=== PATIENT | female | born 1980 | race Caucasian/White ===

== ENCOUNTER 2016-05-03 06:54 | Day surgery (SDC) | payer MEDICAID ==
[~2016-05-03] VITALS: Ht 160 cm; Wt 143.7 kg
[~2016-05-03 06:54] MED LIST: AMITRIPTYLINE H10 M1 PO; BENADRYL25 M2 PO; CELEXA 20MG20 MG/TAB PO; CEPHALEXIN500 M1 PO; CHERATUSSIN AC120 ML PO; CIPRO 500MG TA500 MG PO; DESYREL 100MG100 MG PO; DESYREL 50MG50 MG PO; DOXYCYCLINE 10100 MG PO; FLAGYL500 MG PO; FLEXERIL 1010 MG/TAB PO; GLUCOPHAGE500 MG/TAB PO; HYDROCODONE/APAP; INDERAL 10MG10 MG PO; LORTAB 5/500 501 TAB PO; LORTAB 7.5/5001 TAB PO; MEDROL 4MG DOSPA4 MG PO; NO HOME MEDICATIONS; NORCO 325 MG-51 TAB PO; PERCOCET 325 MG1 TA2 PO; PERCOCET 5/321 UDTAB PO; PHENERGAN 25 TA25 MG PO; PHENTERMINE15 MG PO; PREDNISONE20 M1 PO; PREDNISONE20 MG PO; PROMETHAZINE12.5 M5 PO; PROZAC 20MG20 MG PO; ULTRAM 50MG TAB50 MG PO; VERAPAMIL 440 MG/TAB PO; XYAL5 MG; ZANTAC 150150 MG PO; ZANTAC 150MG T150 MG; ZOFRAN 4MG T4 MG/TAB PO; [UNRECOGNIZED DRUG - OTHER]; [UNRECOGNIZED DRUG - OTHER] PO; migraine med
[2016-05-03 07:56] VITALS: BP 127/83; PULSE 72; TEMP 98.2
[2016-05-03 08:30] VITALS: BP 131/78; PULSE 84; TEMP 98.7
[2016-05-03 08:45] VITALS: BP 120/78; PULSE 80
[2016-05-03] MEDS ORDERED: PRILOSEC 20MG20 MG PO (08:56)
[2016-05-03 09:00] VITALS: BP 112/63; PULSE 75
[2016-05-03 09:15] VITALS: BP 120/69; PULSE 73
[2016-05-03 11:12] VITALS: BP 120/68; PULSE 86
[2016-06-16] VITALS (257 sets, daily range): O2SAT 88–95
[2016-06-17] VITALS (652 sets, daily range): O2SAT 78–99
[2016-06-28] MEDS ORDERED: HAIRSKINNAILS PO (14:54)
[2016-06-28] MEDS ORDERED: MULTIPLE VITAMI1 CAP PO (14:54)
[2016-07-26] MEDS ORDERED: B-121000 MCG SL (13:21)
[2016-09-20] MEDS ORDERED: MULTIPLE VITAMINS PO (15:06)
[2016-09-20] MEDS ORDERED: DESYREL 50MG50 MG PO (15:18)
== END 2016-05-03 09:30 | disposition home or self-care (01) ==
LOC: SDCO 06:54
DX: K29.30 Chronic superficial gastritis without bleeding (principal); B96.81 Helicobacter pylori [H. pylori] as the cause of diseases classified elsewhere; E66.01 Morbid (severe) obesity due to excess calories; R73.01 Impaired fasting glucose; M06.9 Rheumatoid arthritis, unspecified; E16.1 Other hypoglycemia; Z79.84 Long term (current) use of oral hypoglycemic drugs; Z68.43 Body mass index [BMI] 50.0-59.9, adult; Z83.3 Family history of diabetes mellitus
CPT/HCPCS: OP; J2250; J3010; J7030

== ENCOUNTER 2016-05-19 08:17 | Inpatient (IN) | payer MEDICAID ==
[~2016-05-19] VITALS: Ht 157.5 cm; Wt 146.2 kg
[~2016-05-19 08:17] MED LIST changes: +PRILOSEC 20MG20 MG PO
[2016-06-07] MEDS ORDERED: NAPROSYN 2250 MG/TAB PO (16:11)
[2016-06-16] VITALS (9 sets, daily range): BP systolic 117–135; BP diastolic 68–90; PULSE 73–115; TEMP 97.6–98.3
[2016-06-17] VITALS: BP 128/95; PULSE 83; TEMP 97
[2016-06-17 03:54] VITALS: BP 135/88; PULSE 74; PULSE 77; TEMP 98
[2016-06-17 06:39] LABS: ADJUSTED CALCIUM 8.5 mg/dL (8.4-10.2); ALBUMIN 3.5 gm/dL (3.5-5.0); BILIRUBIN,TOTAL 0.7 mg/dL (0.0-1.0); CALCIUM 8.1 mg/dL (8.4-10.2); CREATININE, serum 0.54 mg/dL (0.52-1.25); POTASSIUM 4.8 mmol/L (3.4-5.0); TOTAL PROTEIN 6.4 gm/dL (6.4-8.2)
[2016-06-17 06:46] LABS: BASO % 0.1 % (0.0-2.0); GRAN # 10.9 (1.4-6.5); GRAN % 89.6 % (42.2-75.2); HEMATOCRIT 39.1 % (37.0-47.0); HEMOGLOBIN 12.3 g/dl (12.5-16.0); LYMPH # 0.7 (1.2-3.4); LYMPH % 5.6 % (20.0-51.0); MEAN CELL VOLUME 85 fl (80.0-100.0); MEAN CORPUSCULAR HEMOGLOBIN 27 pg (27.0-31.0); MEAN CORPUSCULAR HGB CONC 32 g/dl (33.0-37.0); MEAN PLATELET VOLUME 10.7 fl (7.4-10.4); MONO # 0.5 (0.1-0.6); MONO % 4.3 % (1.7-9.3); PLATELET COUNT 174 K/mm3 (130-400); RED BLOOD COUNT 4.61 M/mm3 (4.10-5.30); REDCELL DISTRIBUTION WIDTH-CV 14.3 % (11.5-14.5); WHITE BLOOD COUNT 12.2 K/mm3 (4.8-10.8)
[2016-06-17 08:00] VITALS: BP 125/99; PULSE 78; TEMP 97.6
[2016-06-17 18:42] VITALS: BP 134/50; PULSE 95; TEMP 97.7
[2016-06-17 21:55] VITALS: BP 110/59; PULSE 83; TEMP 98
[2016-06-18] VITALS (7 sets, daily range): BP systolic 105–124; BP diastolic 34–55; PULSE 68–100; TEMP 98.1–99
[2016-06-18 07:23] LABS: BASO % 0.2 % (0.0-2.0); EOS # 0.2 (0.0-0.7); EOS % 2.3 % (0-4.0); GRAN % 75.7 % (42.2-75.2); LYMPH # 1.4 (1.2-3.4); LYMPH % 14.8 % (20.0-51.0); MEAN CELL VOLUME 87 fl (80.0-100.0); MEAN CORPUSCULAR HGB CONC 31 g/dl (33.0-37.0); MEAN PLATELET VOLUME 11.2 fl (7.4-10.4); MONO # 0.6 (0.1-0.6); MONO % 6.7 % (1.7-9.3); PLATELET COUNT 167 K/mm3 (130-400); REDCELL DISTRIBUTION WIDTH-CV 14.7 % (11.5-14.5); WHITE BLOOD COUNT 9.2 K/mm3 (4.8-10.8)
[2016-06-18 07:24] LABS: CALCIUM 8.1 mg/dL (8.4-10.2); CREATININE, serum 0.54 mg/dL (0.52-1.25); POTASSIUM 3.4 mmol/L (3.4-5.0)
[2016-06-18 07:43] LABS: HEMATOCRIT 34.7 % (37.0-47.0); HEMOGLOBIN 10.6 g/dl (12.5-16.0); MEAN CORPUSCULAR HEMOGLOBIN 27 pg (27.0-31.0)
[2016-06-19 01:50] VITALS: BP 109/49; PULSE 62; TEMP 97
[2016-06-19 05:22] VITALS: BP 129/71; PULSE 93; TEMP 98.2
[2016-06-19 07:08] LABS: MEAN CELL VOLUME 86 fl (80.0-100.0); MEAN CORPUSCULAR HGB CONC 31 g/dl (33.0-37.0); MEAN PLATELET VOLUME 11.3 fl (7.4-10.4); PLATELET COUNT 156 K/mm3 (130-400); RED BLOOD COUNT 3.61 M/mm3 (4.10-5.30); REDCELL DISTRIBUTION WIDTH-CV 14.7 % (11.5-14.5); WHITE BLOOD COUNT 6.3 K/mm3 (4.8-10.8)
[2016-06-19 07:11] LABS: HEMATOCRIT 31.1 % (37.0-47.0); HEMOGLOBIN 9.6 g/dl (12.5-16.0); MEAN CORPUSCULAR HEMOGLOBIN 27 pg (27.0-31.0)
[2016-06-19 07:19] LABS: CALCIUM 7.9 mg/dL (8.4-10.2); CREATININE, serum 0.51 mg/dL (0.52-1.25); POTASSIUM 3.1 mmol/L (3.4-5.0)
[2016-06-19 09:18] VITALS: BP 119/61; PULSE 88; TEMP 97.6
[2016-06-19 14:11] VITALS: BP 121/60; PULSE 75; TEMP 97.1
[2016-06-19 17:33] VITALS: BP 133/70; PULSE 87; TEMP 98.5
[2016-06-19 21:16] VITALS: BP 116/59; PULSE 83; TEMP 97.7
[2016-06-20 06:06] VITALS: BP 113/61; PULSE 71; TEMP 97.2
[2016-06-20 08:27] LABS: BASO % 0.4 % (0.0-2.0); EOS # 0.4 (0.0-0.7); EOS % 6.5 % (0-4.0); GRAN # 3.4 (1.4-6.5); GRAN % 62.6 % (42.2-75.2); LYMPH # 1.3 (1.2-3.4); LYMPH % 23.9 % (20.0-51.0); MEAN CELL VOLUME 86 fl (80.0-100.0); MEAN CORPUSCULAR HGB CONC 32 g/dl (33.0-37.0); MEAN PLATELET VOLUME 11.1 fl (7.4-10.4); MONO # 0.3 (0.1-0.6); MONO % 6.2 % (1.7-9.3); PLATELET COUNT 169 K/mm3 (130-400); RED BLOOD COUNT 3.32 M/mm3 (4.10-5.30); REDCELL DISTRIBUTION WIDTH-CV 14.5 % (11.5-14.5); WHITE BLOOD COUNT 5.4 K/mm3 (4.8-10.8)
[2016-06-20 08:32] LABS: HEMATOCRIT 28.6 % (37.0-47.0); MEAN CORPUSCULAR HEMOGLOBIN 27 pg (27.0-31.0)
[2016-06-20 08:47] LABS: CALCIUM 7.3 mg/dL (8.4-10.2); CREATININE, serum 0.43 mg/dL (0.52-1.25)
[2016-06-20 08:54] LABS: POTASSIUM 2.8 mmol/L (3.4-5.0)
[2016-06-20 09:14] VITALS: BP 129/74; PULSE 84; TEMP 97.2
[2016-06-20 13:55] VITALS: BP 137/62; PULSE 88; TEMP 97.6
[2016-06-20 17:30] VITALS: BP 130/68; PULSE 71; TEMP 96.7
[2016-06-20 22:00] VITALS: BP 116/62; PULSE 83; TEMP 98.3
[2016-06-21 06:39] VITALS: BP 129/64; PULSE 75; TEMP 98.2
[2016-06-21 07:48] LABS: BASO % 0.2 % (0.0-2.0); EOS # 0.4 (0.0-0.7); GRAN # 3.8 (1.4-6.5); GRAN % 63.7 % (42.2-75.2); LYMPH # 1.3 (1.2-3.4); LYMPH % 21.6 % (20.0-51.0); MEAN CELL VOLUME 84 fl (80.0-100.0); MEAN CORPUSCULAR HGB CONC 31 g/dl (33.0-37.0); MONO # 0.4 (0.1-0.6); PLATELET COUNT 206 K/mm3 (130-400); REDCELL DISTRIBUTION WIDTH-CV 14.2 % (11.5-14.5)
[2016-06-21 07:56] LABS: CALCIUM 8.4 mg/dL (8.4-10.2); CREATININE, serum 0.48 mg/dL (0.52-1.25); POTASSIUM 3.6 mmol/L (3.4-5.0)
[2016-06-21 08:03] LABS: HEMATOCRIT 31.2 % (37.0-47.0); HEMOGLOBIN 9.8 g/dl (12.5-16.0); MEAN CORPUSCULAR HEMOGLOBIN 26 pg (27.0-31.0)
[2016-06-28] MEDS ORDERED: MULTIPLE VITAMI1 CAP PO (14:54)
[2016-06-28] MEDS ORDERED: HAIRSKINNAILS PO (14:54)
[2016-07-26] MEDS ORDERED: B-121000 MCG SL (13:21)
[2016-09-20] MEDS ORDERED: MULTIPLE VITAMINS PO (15:06)
[2016-09-20] MEDS ORDERED: DESYREL 50MG50 MG PO (15:18)
== END 2016-06-21 12:55 | disposition home or self-care (01) | DRG 621 ==
LOC: INPTSU 06-16 07:36 → SURG 06-16 09:30 → ICU 06-16 18:37 → SURG 06-17 12:34
PROVIDERS: Surgery
PROC: 0WJP4ZZ Inspection of Gastrointestinal Tract, Percutaneous Endoscopic Approach (ICD-10-PCS; 2016-06-16)
PROC: 0D160ZA Bypass Stomach to Jejunum, Open Approach (ICD-10-PCS; principal; 2016-06-16 10:30)
DX: E66.01 Morbid (severe) obesity due to excess calories (principal); Z68.43 Body mass index [BMI] 50.0-59.9, adult; M06.9 Rheumatoid arthritis, unspecified; E16.1 Other hypoglycemia; R06.89 Other abnormalities of breathing; R09.02 Hypoxemia; E87.6 Hypokalemia
CPT/HCPCS: A4315; C1751; C9113; J0330; J1170; J1644; J1650; J1885; J1956; J2550; J2704; J3010; J3480; J7030; J7120

== ENCOUNTER → 2016-06-07 | Outpatient (CLI) | payer MEDICAID ==
[~2016-06-07] VITALS: Ht 160 cm; Wt 143.1 kg
[~2016-06-07] MED LIST changes: +B-121000 MCG SL; +BACTRIM DS 8001 TAB PO; +DUO-KAPS1 CAP PO; +HAIRSKINNAILS PO; +MULTIPLE VITAMI1 CAP PO; +MULTIPLE VITAMINS PO; +NAPROSYN 2250 MG/TAB PO; +ZOFRAN ODT4 MG PO
== END ==
LOC: LIGHT 11:07
DX: Z01.818 Encounter for other preprocedural examination (principal)

== ENCOUNTER → 2016-06-28 | Outpatient (CLI) | payer MEDICAID ==
[~2016-06-28] VITALS: Ht 157.5 cm; Wt 134.0 kg
[2016-06-28 14:55] VITALS: BP 132/67; PULSE 110
== END ==
LOC: LIGHT 14:33
DX: Z48.815 Encounter for surgical aftercare following surgery on the digestive system (principal)

== ENCOUNTER → 2016-07-26 | Outpatient (CLI) | payer MEDICAID ==
[~2016-07-26] VITALS: Ht 157.5 cm; Wt 128.4 kg
[2016-07-26 13:22] VITALS: BP 110/70; PULSE 86
== END ==
LOC: LIGHT 13:20
DX: Z02.89 Encounter for other administrative examinations (principal)

== ENCOUNTER 2016-08-06 14:30 | Observation (INO) | payer MEDICAID ==
[~2016-08-06] VITALS: Ht 157.5 cm; Wt 127.0 kg
[~2016-08-06 14:30] MED LIST changes: -BACTRIM DS 8001 TAB PO; -DUO-KAPS1 CAP PO; -MULTIPLE VITAMINS PO; -ZOFRAN ODT4 MG PO
[2016-08-06 15:44] LABS: BASO % 0.5 % (0.0-2.0); EOS # 0.2 (0.0-0.7); EOS % 1.8 % (0-4.0); GRAN # 5.1 (1.4-6.5); GRAN % 60.4 % (42.2-75.2); HEMATOCRIT 45.9 % (37.0-47.0); HEMOGLOBIN 14.5 g/dl (12.5-16.0); LYMPH # 2.7 (1.2-3.4); LYMPH % 31.4 % (20.0-51.0); MEAN CELL VOLUME 82 fl (80.0-100.0); MEAN CORPUSCULAR HEMOGLOBIN 26 pg (27.0-31.0); MEAN CORPUSCULAR HGB CONC 32 g/dl (33.0-37.0); MEAN PLATELET VOLUME 11.9 fl (7.4-10.4); MONO # 0.5 (0.1-0.6); MONO % 5.7 % (1.7-9.3); PLATELET COUNT 281 K/mm3 (130-400); REDCELL DISTRIBUTION WIDTH-CV 13.8 % (11.5-14.5); WHITE BLOOD COUNT 8.5 K/mm3 (4.8-10.8)
[2016-08-06 15:55] LABS: ADJUSTED CALCIUM 8.9 mg/dL (8.4-10.2); ALBUMIN 4.7 gm/dL (3.5-5.0); CALCIUM 9.5 mg/dL (8.4-10.2); CREATININE, serum 0.57 mg/dL (0.52-1.25); POTASSIUM 3.5 mmol/L (3.4-5.0); TOTAL PROTEIN 8.1 gm/dL (6.4-8.2)
[2016-08-06 17:19] LABS: PH 6 (5-8); URINE APPEARANCE Clear; URINE BACTERIA Rare /hpf; URINE BILIRUBIN Negative (NEGATIVE); URINE BLOOD Negative (NEGATIVE); URINE COLOR Yellow; URINE GLUCOSE Negative (NEGATIVE); URINE KETONE 2+ (NEGATIVE); URINE UROBILINOGEN Negative (NEGATIVE)
[2016-08-06 19:30] VITALS: BP 105/63; PULSE 56; TEMP 97.8
[2016-08-07] VITALS (10 sets, daily range): BP systolic 102–120; BP diastolic 56–86; PULSE 55–69; TEMP 97.6–98.4
[2016-08-08 06:03] VITALS: BP 119/78; PULSE 60; TEMP 98
[2016-08-08 09:53] VITALS: BP 116/72; PULSE 54; TEMP 97.9
[2016-08-08 13:34] VITALS: BP 115/66; PULSE 56; TEMP 98.2
[2016-08-08 17:41] VITALS: BP 116/73; PULSE 61; TEMP 98.4
[2016-08-08 21:45] VITALS: BP 130/62; PULSE 65; TEMP 98
[2016-08-09 06:01] VITALS: BP 99/47; PULSE 56; TEMP 97.6
[2016-08-09 09:07] LABS: ADD PATHOLOGY DIFF REVIEW NO
[2016-08-09 09:15] LABS: HEMATOCRIT 40.7 % (37.0-47.0); HEMOGLOBIN 12.8 g/dl (12.5-16.0); MEAN CELL VOLUME 82 fl (80.0-100.0); MEAN CORPUSCULAR HEMOGLOBIN 26 pg (27.0-31.0); MEAN CORPUSCULAR HGB CONC 31 g/dl (33.0-37.0); PLATELET COUNT 224 K/mm3 (130-400); RED BLOOD COUNT 4.96 M/mm3 (4.10-5.30); REDCELL DISTRIBUTION WIDTH-CV 14.3 % (11.5-14.5); WHITE BLOOD COUNT 4.6 K/mm3 (4.8-10.8)
[2016-08-09 09:25] LABS: ADJUSTED CALCIUM 9.2 mg/dL (8.4-10.2); ALANINE AMINOTRANSFERASE 357 U/L (9-52); ALBUMIN 3.8 gm/dL (3.5-5.0); ALKALINE PHOSPHATASE 118 U/L (50-136); ANION GAP 14 mmol/L (7-16); CARBON DIOXIDE 23 mmol/L (22-30); CHLORIDE 101 mmol/L (98-107); CREATININE, serum 0.52 mg/dL (0.52-1.25); GLUCOSE 94 mg/dL (74-106); LIPASE 218 U/L (23-300); POTASSIUM 3.2 mmol/L (3.4-5.0); SODIUM 138 mmol/L (137-145); TOTAL PROTEIN 6.8 gm/dL (6.4-8.2)
[2016-08-09 09:30] VITALS: BP 109/66; PULSE 65; TEMP 98
[2016-08-09 09:31] LABS: BLOOD UREA NITROGEN < 2 mg/dL (7-17)
[2016-08-09 10:07] LABS: BAND 8 % (0-10); EOSINOPHIL 7 % (0-4); NEUTROPHILS 55 % (42.0-75.2); TOTAL CELLS COUNTED 100
[2016-08-09 10:13] LABS: PLATELET ESTIMATE NORMAL (NORMAL)
[2016-09-20] MEDS ORDERED: MULTIPLE VITAMINS PO (15:06)
[2016-09-20] MEDS ORDERED: DESYREL 50MG50 MG PO (15:18)
== END 2016-08-09 15:00 | disposition home or self-care (01) ==
LOC: COL.ER 14:30 → SURG 18:00
PROVIDERS: Emergency Medicine; Surgery
DX: K29.70 Gastritis, unspecified, without bleeding (principal); K25.9 Gastric ulcer, unspecified as acute or chronic, without hemorrhage or perforation; K91.850 Pouchitis; K76.0 Fatty (change of) liver, not elsewhere classified; R16.1 Splenomegaly, not elsewhere classified; M06.9 Rheumatoid arthritis, unspecified; F32.9 Major depressive disorder, single episode, unspecified; G47.33 Obstructive sleep apnea (adult) (pediatric); E66.01 Morbid (severe) obesity due to excess calories; Z90.49 Acquired absence of other specified parts of digestive tract; Z90.710 Acquired absence of both cervix and uterus; Z98.84 Bariatric surgery status; Z98.51 Tubal ligation status
CPT/HCPCS: C9113; G0378; J1170; J2550; J2704; J2765; J3010; J7030; Q9967

== ENCOUNTER → 2016-09-20 | Outpatient (CLI) | payer MEDICAID ==
[~2016-09-20] VITALS: Ht 157.5 cm; Wt 117.0 kg
[~2016-09-20] MED LIST changes: +BACTRIM DS 8001 TAB PO; +DUO-KAPS1 CAP PO; +MULTIPLE VITAMINS PO; +ZOFRAN ODT4 MG PO
[2016-09-20 15:06] VITALS: BP 102/55; PULSE 58
== END ==
LOC: LIGHT 08:47
DX: R73.01 Impaired fasting glucose (principal); E16.1 Other hypoglycemia; Z68.42 Body mass index [BMI] 45.0-49.9, adult; Z71.3 Dietary counseling and surveillance

== ENCOUNTER 2016-10-09 08:43 | Emergency (ER) | payer MEDICAID ==
[~2016-10-09] VITALS: Ht 157.5 cm; Wt 114.5 kg
[~2016-10-09 08:43] MED LIST changes: -BACTRIM DS 8001 TAB PO; -DUO-KAPS1 CAP PO; -ZOFRAN ODT4 MG PO
[2016-10-09 08:47] VITALS: TEMP 97.9
[2016-10-09 09:45] LABS: BASO % 0.8 % (0.0-2.0); EOS # 0.1 (0.0-0.7); EOS % 3.6 % (0-4.0); GRAN # 1.9 (1.4-6.5); GRAN % 47.7 % (42.2-75.2); HEMATOCRIT 39.9 % (37.0-47.0); HEMOGLOBIN 12.7 g/dl (12.5-16.0); LYMPH # 1.6 (1.2-3.4); LYMPH % 39.7 % (20.0-51.0); MEAN CELL VOLUME 81 fl (80.0-100.0); MEAN CORPUSCULAR HEMOGLOBIN 26 pg (27.0-31.0); MEAN CORPUSCULAR HGB CONC 32 g/dl (33.0-37.0); MONO # 0.3 (0.1-0.6); MONO % 8.2 % (1.7-9.3); PLATELET COUNT 165 K/mm3 (130-400); RED BLOOD COUNT 4.91 M/mm3 (4.10-5.30); REDCELL DISTRIBUTION WIDTH-CV 15.9 % (11.5-14.5); WHITE BLOOD COUNT 3.9 K/mm3 (4.8-10.8)
[2016-10-09] MEDS ORDERED: DUO-KAPS1 CAP PO (09:50)
[2016-10-09 09:53] LABS: PH 5 (5-8); URINE APPEARANCE Cloudy; URINE BACTERIA None Seen /hpf; URINE BILIRUBIN Negative (NEGATIVE); URINE BLOOD 3+ (NEGATIVE); URINE COLOR Yellow; URINE GLUCOSE Negative (NEGATIVE); URINE KETONE 2+ (NEGATIVE); URINE RBC >50 /hpf
[2016-10-09 09:55] LABS: ADJUSTED CALCIUM 9.1 mg/dL (8.4-10.2); ALBUMIN 4.1 gm/dL (3.5-5.0); BILIRUBIN,TOTAL 1.1 mg/dL (0.0-1.0); CALCIUM 9.2 mg/dL (8.4-10.2); CREATININE, serum 0.6 mg/dL (0.52-1.25); POTASSIUM 3.2 mmol/L (3.4-5.0)
[2016-10-09] MEDS ORDERED: BACTRIM DS 8001 TAB PO (10:59)
[2016-10-09] MEDS ORDERED: NORCO 325 MG-51 TAB PO (10:59)
[2016-10-09] MEDS ORDERED: ZOFRAN ODT4 MG PO (10:59)
[2016-10-09 11:49] VITALS: BP 108/57; PULSE 60
== END 2016-10-09 11:51 | disposition home or self-care (01) ==
LOC: COL.ER 08:43
PROVIDERS: Physician Assistant
DX: N39.0 Urinary tract infection, site not specified (principal); R31.9 Hematuria, unspecified; Z90.710 Acquired absence of both cervix and uterus; Z90.49 Acquired absence of other specified parts of digestive tract; Z98.84 Bariatric surgery status; Z87.442 Personal history of urinary calculi
CPT/HCPCS: J1170; J1885; J2550; J7030

== ENCOUNTER 2016-10-21 17:18 | Observation (INO) | payer MEDICAID ==
[~2016-10-21] VITALS: Ht 157.5 cm; Wt 112.8 kg
[~2016-10-21 17:18] MED LIST changes: +BACTRIM DS 8001 TAB PO; +DUO-KAPS1 CAP PO; +ZOFRAN ODT4 MG PO
[2016-10-21 18:30] LABS: BASO % 0.4 % (0.0-2.0); EOS # 0.1 (0.0-0.7); GRAN # 3.6 (1.4-6.5); HEMATOCRIT 44.5 % (37.0-47.0); HEMOGLOBIN 14.1 g/dl (12.5-16.0); LYMPH # 1.5 (1.2-3.4); LYMPH % 26.5 % (20.0-51.0); MEAN CELL VOLUME 81 fl (80.0-100.0); MEAN CORPUSCULAR HEMOGLOBIN 26 pg (27.0-31.0); MEAN CORPUSCULAR HGB CONC 32 g/dl (33.0-37.0); MEAN PLATELET VOLUME 11.5 fl (7.4-10.4); MONO # 0.4 (0.1-0.6); MONO % 6.9 % (1.7-9.3); PLATELET COUNT 207 K/mm3 (130-400); RED BLOOD COUNT 5.47 M/mm3 (4.10-5.30); REDCELL DISTRIBUTION WIDTH-CV 15.6 % (11.5-14.5); WHITE BLOOD COUNT 5.5 K/mm3 (4.8-10.8)
[2016-10-21 18:43] LABS: ADJUSTED CALCIUM 9.4 mg/dL (8.4-10.2); ALBUMIN 4.5 gm/dL (3.5-5.0); BILIRUBIN,TOTAL 1.1 mg/dL (0.0-1.0); C-REACTIVE PROTEIN 1.4 mg/dL (0.0-0.9); CALCIUM 9.8 mg/dL (8.4-10.2); CREATININE, serum 0.81 mg/dL (0.52-1.25); POTASSIUM 3.7 mmol/L (3.4-5.0); TOTAL PROTEIN 7.9 gm/dL (6.4-8.2)
[2016-10-21 18:47] LABS: PH 6 (5-8); URINE APPEARANCE Hazy; URINE BACTERIA Rare /hpf; URINE BILIRUBIN Negative (NEGATIVE); URINE BLOOD 1+ (NEGATIVE); URINE COLOR Yellow; URINE GLUCOSE Negative (NEGATIVE); URINE KETONE 2+ (NEGATIVE)
[2016-10-21] MEDS ORDERED: FLEXERIL 1010 MG/TAB PO (19:15)
[2016-10-21 22:15] VITALS: BP 121/63; PULSE 70; TEMP 98.3
[2016-10-22] VITALS (14 sets, daily range): BP systolic 104–139; BP diastolic 57–85; PULSE 56–97; TEMP 97.6–98.2
[2016-10-23 02:33] VITALS: BP 101/54; PULSE 71; TEMP 97.9
[2016-10-23 06:24] VITALS: BP 113/65; PULSE 54; TEMP 97.7
== END 2016-10-23 10:00 | disposition home or self-care (01) ==
LOC: COL.ER 17:18 → SURG 19:55
PROVIDERS: Emergency Medicine
DX: N13.2 Hydronephrosis with renal and ureteral calculous obstruction (principal); G47.33 Obstructive sleep apnea (adult) (pediatric); M06.9 Rheumatoid arthritis, unspecified; K75.9 Inflammatory liver disease, unspecified; E66.01 Morbid (severe) obesity due to excess calories; Z68.41 Body mass index [BMI] 40.0-44.9, adult; Z90.710 Acquired absence of both cervix and uterus; Z90.49 Acquired absence of other specified parts of digestive tract; Z87.891 Personal history of nicotine dependence; Z86.59 Personal history of other mental and behavioral disorders
CPT/HCPCS: C1769; C1894; G0378; J0690; J0696; J1100; J1170; J1200; J2270; J2405; J2550; J2704; J2765; J3010; J7030; J7120; Q9967

== ENCOUNTER → 2016-12-24 | Outpatient (CLI) | payer MEDICAID ==
[2016-12-24 09:45] LABS: HEMATOCRIT 40.5 % (37.0-47.0); HEMOGLOBIN 13.1 g/dl (12.5-16.0); MEAN CELL VOLUME 87 fl (80.0-100.0); MEAN CORPUSCULAR HEMOGLOBIN 28 pg (27.0-31.0); MEAN CORPUSCULAR HGB CONC 32 g/dl (33.0-37.0); MEAN PLATELET VOLUME 10.9 fl (7.4-10.4); PLATELET COUNT 209 K/mm3 (130-400); RED BLOOD COUNT 4.67 M/mm3 (4.10-5.30); WHITE BLOOD COUNT 4.7 K/mm3 (4.8-10.8)
[2016-12-24 10:00] LABS: ADJUSTED CALCIUM 9.6 mg/dL (8.4-10.2); ALBUMIN 3.9 gm/dL (3.5-5.0); BILIRUBIN,TOTAL 0.7 mg/dL (0.0-1.0); CALCIUM 9.5 mg/dL (8.4-10.2); CREATININE, serum 0.62 mg/dL (0.52-1.25); POTASSIUM 3.9 mmol/L (3.4-5.0); TOTAL PROTEIN 7.2 gm/dL (6.4-8.2)
== END ==
LOC: COL.LAB 09:11
PROVIDERS: Surgery
DX: Z01.89 Encounter for other specified special examinations (principal)

== ENCOUNTER 2017-04-20 11:52 | Emergency (ER) | payer MEDICAID ==
[~2017-04-20] VITALS: Ht 157.5 cm; Wt 90.9 kg
[2017-04-20 11:54] VITALS: BP 117/59
[2017-04-20 14:24] VITALS: PULSE 79; TEMP 98.4
== END 2017-04-20 14:15 | disposition home or self-care (01) ==
LOC: COL.ER 11:52
DX: R51 Headache (principal); Z87.442 Personal history of urinary calculi; Z90.710 Acquired absence of both cervix and uterus; Z98.51 Tubal ligation status; Z90.49 Acquired absence of other specified parts of digestive tract; Z98.84 Bariatric surgery status; Z98.890 Other specified postprocedural states
CPT/HCPCS: J1200; J1885

== ENCOUNTER 2017-05-24 13:15 | Outpatient (RCR) | payer MEDICAID ==
[2017-06-01] MEDS ORDERED: PRILOSEC10 MG PO (11:24)
[2017-06-01] MEDS ORDERED: ULTRAM 50MG TAB50 MG PO (11:25)
[2017-06-01] MEDS ORDERED: NORCO 325 MG-51 TAB PO (12:52)
[2017-06-01] MEDS ORDERED: PYRIDIUM200 M1 PO (12:52)
[2017-07-05] MEDS ORDERED: FLEXERIL 1010 MG/TAB PO (20:45)
[2017-07-10] MEDS ORDERED: ULTRAM 50MG TAB50 MG PO (12:39)
[2017-07-10] MEDS ORDERED: IMITREX50 MG PO (12:41)
[2017-07-10] MEDS ORDERED: MEDROL 4MG DOSPA4 MG PO (14:06)
[2017-07-10] MEDS ORDERED: FLEXERIL 1010 MG/TAB PO (14:10)
== END 2017-08-15 | disposition home or self-care (01) ==
LOC: MKS.ESL.PT
DX: M54.6 Pain in thoracic spine (principal)

== ENCOUNTER 2017-06-01 11:13 | Emergency (ER) | payer MEDICAID ==
[~2017-06-01] VITALS: Ht 157.5 cm; Wt 90.0 kg
[2017-06-01 11:20] VITALS: TEMP 97.9
[2017-06-01] MEDS ORDERED: PRILOSEC10 MG PO (11:24)
[2017-06-01] MEDS ORDERED: ULTRAM 50MG TAB50 MG PO (11:25)
[2017-06-01 12:11] LABS: COLLECTION METHOD CLEAN CATCH
[2017-06-01 12:16] LABS: BASO % 0.2 % (0.0-2.0); EOS # 0.1 (0.0-0.7); EOS % 1.2 % (0-4.0); GRAN # 4.7 (1.4-6.5); GRAN % 71.8 % (42.2-75.2); HEMATOCRIT 41.5 % (37.0-47.0); HEMOGLOBIN 13.6 g/dl (12.5-16.0); LYMPH # 1.4 (1.2-3.4); LYMPH % 21.3 % (20.0-51.0); MEAN CELL VOLUME 87 fl (80.0-100.0); MEAN CORPUSCULAR HEMOGLOBIN 28 pg (27.0-31.0); MEAN CORPUSCULAR HGB CONC 33 g/dl (33.0-37.0); MEAN PLATELET VOLUME 10.3 fl (7.4-10.4); MONO # 0.4 (0.1-0.6); MONO % 5.3 % (1.7-9.3); PLATELET COUNT 228 K/mm3 (130-400); RED BLOOD COUNT 4.79 M/mm3 (4.10-5.30); REDCELL DISTRIBUTION WIDTH-CV 13.3 % (11.5-14.5)
[2017-06-01 12:26] LABS: MUCOUS Present /lpf; PH 8 (5-8); URINE APPEARANCE Cloudy; URINE BACTERIA Rare /hpf; URINE BILIRUBIN Negative (NEGATIVE); URINE BLOOD Negative (NEGATIVE); URINE COLOR Amber; URINE GLUCOSE Negative (NEGATIVE); URINE KETONE Negative (NEGATIVE); URINE LEUKOCYTE ESTERASE Negative (NEGATIVE); URINE NITRATE Negative (NEGATIVE); URINE PROTEIN(semi-quant) 1+ (NEGATIVE); URINE RBC None Seen /hpf; URINE TRIPLE PHOSPHATE CRYSTAL Present /hpf; URINE UROBILINOGEN >=4.0 mg/dL (NEGATIVE)
[2017-06-01 12:31] LABS: BILIRUBIN,TOTAL 0.5 mg/dL (0.0-1.0); C-REACTIVE PROTEIN 0.8 mg/dL (0.0-0.9); CREATININE, serum 0.56 mg/dL (0.52-1.25); POTASSIUM 4.2 mmol/L (3.4-5.0); TOTAL PROTEIN 7.5 gm/dL (6.4-8.2)
[2017-06-01] MEDS ORDERED: NORCO 325 MG-51 TAB PO (12:52)
[2017-06-01] MEDS ORDERED: PYRIDIUM200 M1 PO (12:52)
[2017-06-01 13:00] VITALS: BP 110/60; PULSE 63
== END 2017-06-01 13:08 | disposition home or self-care (01) ==
LOC: COL.ER 11:13
PROVIDERS: Physician Assistant
DX: R10.30 Lower abdominal pain, unspecified (principal); G43.909 Migraine, unspecified, not intractable, without status migrainosus; Z87.442 Personal history of urinary calculi; Z98.84 Bariatric surgery status; Z98.890 Other specified postprocedural states
CPT/HCPCS: J1885; J2270; J7030

== ENCOUNTER 2017-06-17 21:32 | Emergency (ER) | payer MEDICAID ==
[~2017-06-17] VITALS: Ht 157.5 cm; Wt 94.1 kg
[~2017-06-17 21:32] MED LIST changes: +PRILOSEC10 MG PO; +PYRIDIUM200 M1 PO
[2017-06-17 21:39] VITALS: BP 127/72; TEMP 97.7
[2017-06-17 22:53] VITALS: PULSE 68
== END 2017-06-17 22:52 | disposition home or self-care (01) ==
LOC: COL.ER 21:32
DX: G43.909 Migraine, unspecified, not intractable, without status migrainosus (principal); K21.9 Gastro-esophageal reflux disease without esophagitis; D64.9 Anemia, unspecified; Z87.442 Personal history of urinary calculi; Z98.84 Bariatric surgery status; Z90.710 Acquired absence of both cervix and uterus; Z98.890 Other specified postprocedural states
CPT/HCPCS: J1200; J1885; J2765; J7030

== ENCOUNTER 2017-06-20 18:12 | Emergency (ER) | payer MEDICAID ==
[~2017-06-20] VITALS: Ht 157.5 cm; Wt 97.0 kg
[2017-06-20 18:27] VITALS: TEMP 97.8
[2017-06-20 20:13] VITALS: BP 102/65; PULSE 59
== END 2017-06-20 20:15 | disposition home or self-care (01) ==
LOC: COL.ER 18:12
DX: G43.909 Migraine, unspecified, not intractable, without status migrainosus (principal); G44.209 Tension-type headache, unspecified, not intractable; Z87.442 Personal history of urinary calculi; Z90.49 Acquired absence of other specified parts of digestive tract; Z90.710 Acquired absence of both cervix and uterus; Z98.84 Bariatric surgery status
CPT/HCPCS: J1200; J1885; J2765; J7030

== ENCOUNTER 2017-07-05 19:58 | Emergency (ER) | payer MEDICAID ==
[~2017-07-05] VITALS: Ht 157.5 cm; Wt 95.5 kg
[2017-07-05 20:05] VITALS: BP 111/64; PULSE 78; TEMP 97.8
[2017-07-05] MEDS ORDERED: FLEXERIL 1010 MG/TAB PO (20:45)
== END 2017-07-05 21:16 | disposition home or self-care (01) ==
LOC: COL.ER 19:58
DX: M54.6 Pain in thoracic spine (principal); G43.909 Migraine, unspecified, not intractable, without status migrainosus; W18.39XA Other fall on same level, initial encounter; W22.09XA Striking against other stationary object, initial encounter
CPT/HCPCS: J1885

== ENCOUNTER 2017-07-10 12:24 | Emergency (ER) | payer MEDICAID ==
[~2017-07-10] VITALS: Ht 157.5 cm; Wt 90.9 kg
[2017-07-10 12:35] VITALS: TEMP 98.3
[2017-07-10] MEDS ORDERED: ULTRAM 50MG TAB50 MG PO (12:39)
[2017-07-10] MEDS ORDERED: IMITREX50 MG PO (12:41)
[2017-07-10 14:01] VITALS: BP 99/64; PULSE 89
[2017-07-10] MEDS ORDERED: MEDROL 4MG DOSPA4 MG PO (14:06)
[2017-07-10] MEDS ORDERED: FLEXERIL 1010 MG/TAB PO (14:10)
== END 2017-07-10 14:20 | disposition home or self-care (01) ==
LOC: COL.ER 12:24
DX: M79.602 Pain in left arm (principal); G43.909 Migraine, unspecified, not intractable, without status migrainosus; G89.29 Other chronic pain; M54.5 Low back pain
CPT/HCPCS: J1885; J2060; J7512

== ENCOUNTER → 2017-09-05 | Outpatient (CLI) | payer MEDICAID ==
[~2017-09-05] VITALS: Ht 157.5 cm; Wt 94.6 kg
[~2017-09-05] MED LIST changes: +CYMBALTA 30MG30 MG PO; +IMITREX50 MG PO
[2017-09-05 15:00] VITALS: BP 100/64; PULSE 72
== END ==
LOC: LIGHT 07-11 11:43
DX: R73.01 Impaired fasting glucose (principal); Z98.84 Bariatric surgery status; E16.1 Other hypoglycemia; Z68.38 Body mass index [BMI] 38.0-38.9, adult; Z71.3 Dietary counseling and surveillance
CPT/HCPCS: G0463

== ENCOUNTER 2017-09-17 18:33 | Emergency (ER) | payer MEDICAID ==
[~2017-09-17] VITALS: Ht 157.5 cm; Wt 90.5 kg
[2017-09-17 18:34] VITALS: BP 108/72; PULSE 81; TEMP 97.7
== END 2017-09-17 19:31 | disposition home or self-care (01) ==
LOC: COL.ER 18:33
DX: S30.0XXA Contusion of lower back and pelvis, initial encounter (principal); G43.909 Migraine, unspecified, not intractable, without status migrainosus; F32.9 Major depressive disorder, single episode, unspecified; M54.9 Dorsalgia, unspecified; G89.29 Other chronic pain; W18.30XA Fall on same level, unspecified, initial encounter
CPT/HCPCS: J1885

== ENCOUNTER 2017-09-24 19:21 | Emergency (ER) | payer MEDICAID ==
[~2017-09-24] VITALS: Ht 157.5 cm; Wt 86.4 kg
[2017-09-24 19:36] VITALS: TEMP 98
[2017-09-24 20:29] LABS: BASO % 0.4 % (0.0-2.0); EOS # 0.1 (0.0-0.7); EOS % 1.1 % (0-4.0); GRAN # 4.8 (1.4-6.5); GRAN % 68.5 % (42.2-75.2); HEMATOCRIT 41.5 % (37.0-47.0); HEMOGLOBIN 13.7 g/dl (12.5-16.0); LYMPH # 1.8 (1.2-3.4); MEAN CELL VOLUME 88 fl (80.0-100.0); MEAN CORPUSCULAR HEMOGLOBIN 29 pg (27.0-31.0); MEAN CORPUSCULAR HGB CONC 33 g/dl (33.0-37.0); MEAN PLATELET VOLUME 10.3 fl (7.4-10.4); MONO # 0.3 (0.1-0.6); MONO % 4.9 % (1.7-9.3); PLATELET COUNT 214 K/mm3 (130-400); REDCELL DISTRIBUTION WIDTH-CV 13.2 % (11.5-14.5)
[2017-09-24 20:40] LABS: ALBUMIN 4.3 gm/dL (3.5-5.0); BILIRUBIN,TOTAL 0.4 mg/dL (0.0-1.0); C-REACTIVE PROTEIN 0.6 mg/dL (0.0-0.9); CALCIUM 9.2 mg/dL (8.4-10.2); CREATININE, serum 0.86 mg/dL (0.52-1.25); POTASSIUM 3.8 mmol/L (3.4-5.0); TOTAL PROTEIN 7.8 gm/dL (6.4-8.2)
[2017-09-24] MEDS ORDERED: ZOFRAN ODT4 MG PO (22:52)
[2017-09-24] MEDS ORDERED: CARAFATE 1GM1 G PO (22:52)
[2017-09-24] MEDS ORDERED: NORCO 325 MG-51 TAB PO (22:52)
[2017-09-24 23:16] VITALS: BP 109/63; PULSE 68
== END 2017-09-24 23:19 | disposition home or self-care (01) ==
LOC: COL.ER 19:21
PROVIDERS: Emergency Medicine
DX: R10.12 Left upper quadrant pain (principal); R11.2 Nausea with vomiting, unspecified; K21.9 Gastro-esophageal reflux disease without esophagitis; F32.9 Major depressive disorder, single episode, unspecified; Z90.49 Acquired absence of other specified parts of digestive tract; Z90.710 Acquired absence of both cervix and uterus; Z98.84 Bariatric surgery status
CPT/HCPCS: C9113; J1170; J2060; J2405; J3010; J7030; Q9967

== ENCOUNTER 2017-09-28 16:55 | Emergency (ER) | payer MEDICAID ==
[~2017-09-28] VITALS: Ht 157.5 cm; Wt 88.6 kg
[~2017-09-28 16:55] MED LIST changes: +CARAFATE 1GM1 G PO
[2017-09-28 16:58] VITALS: BP 117/63; TEMP 97.8
[2017-09-28 19:05] VITALS: PULSE 60
== END 2017-09-28 19:05 | disposition home or self-care (01) ==
LOC: COL.ER 16:55
DX: K59.00 Constipation, unspecified (principal); Z90.710 Acquired absence of both cervix and uterus; Z98.51 Tubal ligation status; Z90.49 Acquired absence of other specified parts of digestive tract; Z98.84 Bariatric surgery status

== ENCOUNTER 2017-10-10 12:59 | Emergency (ER) | payer MEDICAID ==
[~2017-10-10] VITALS: Ht 157.5 cm; Wt 89.1 kg
[2017-10-10 13:02] VITALS: TEMP 98.1
[2017-10-10] MEDS ORDERED: BUSPAR10 MG PO (13:13)
[2017-10-10 14:45] VITALS: BP 110/71; PULSE 68
== END 2017-10-10 14:45 | disposition home or self-care (01) ==
LOC: COL.ER 12:59
DX: G43.909 Migraine, unspecified, not intractable, without status migrainosus (principal); Z87.442 Personal history of urinary calculi; Z90.49 Acquired absence of other specified parts of digestive tract; Z90.710 Acquired absence of both cervix and uterus; Z90.89 Acquired absence of other organs; Z98.84 Bariatric surgery status
CPT/HCPCS: J1200; J1885; J2270; J2405; J2765; J7030

== ENCOUNTER 2017-10-17 22:21 | Emergency (ER) | payer MEDICAID ==
[~2017-10-17] VITALS: Ht 157.5 cm; Wt 88.2 kg
[~2017-10-17 22:21] MED LIST changes: +BUSPAR10 MG PO
[2017-10-17 22:38] VITALS: TEMP 97.4
[2017-10-17 23:38] LABS: BASO % 0.5 % (0.0-2.0); EOS # 0.1 (0.0-0.7); EOS % 1.5 % (0-4.0); GRAN # 3.7 (1.4-6.5); GRAN % 56.1 % (42.2-75.2); HEMOGLOBIN 13.5 g/dl (12.5-16.0); LYMPH # 2.3 (1.2-3.4); LYMPH % 35.9 % (20.0-51.0); MEAN CELL VOLUME 87 fl (80.0-100.0); MEAN CORPUSCULAR HEMOGLOBIN 29 pg (27.0-31.0); MEAN CORPUSCULAR HGB CONC 33 g/dl (33.0-37.0); MEAN PLATELET VOLUME 10.6 fl (7.4-10.4); MONO # 0.4 (0.1-0.6); MONO % 5.8 % (1.7-9.3); PLATELET COUNT 230 K/mm3 (130-400); RED BLOOD COUNT 4.73 M/mm3 (4.10-5.30)
[2017-10-17 23:49] LABS: ALBUMIN 4.1 gm/dL (3.5-5.0); BILIRUBIN,TOTAL 0.4 mg/dL (0.0-1.0); CALCIUM 8.9 mg/dL (8.4-10.2); CREATININE, serum 0.48 mg/dL (0.52-1.25); POTASSIUM 3.9 mmol/L (3.4-5.0); TOTAL PROTEIN 7.5 gm/dL (6.4-8.2)
[2017-10-18 00:35] LABS: COLLECTION METHOD CLEAN CATCH
[2017-10-18 00:40] LABS: PH 7 (5-8); SQUAMOUS EPITHELIAL 0-2 /hpf; URINE APPEARANCE Clear; URINE BACTERIA None Seen /hpf; URINE BILIRUBIN Negative (NEGATIVE); URINE BLOOD Negative (NEGATIVE); URINE COLOR Yellow; URINE GLUCOSE Negative (NEGATIVE); URINE KETONE Negative (NEGATIVE); URINE LEUKOCYTE ESTERASE Negative (NEGATIVE); URINE NITRATE Negative (NEGATIVE); URINE PROTEIN(semi-quant) Negative (NEGATIVE); URINE RBC 0-2 /hpf
[2017-10-18] MEDS ORDERED: PHENERGAN 25 TA25 MG PO (01:10)
[2017-10-18 01:17] VITALS: BP 103/62; PULSE 76
== END 2017-10-18 01:21 | disposition home or self-care (01) ==
LOC: COL.ER 22:21
PROVIDERS: Emergency Medicine
DX: R10.13 Epigastric pain (principal); R11.2 Nausea with vomiting, unspecified; Z90.49 Acquired absence of other specified parts of digestive tract; Z90.710 Acquired absence of both cervix and uterus; Z98.84 Bariatric surgery status
CPT/HCPCS: C9113; J1200; J1630; J2765; J3010; J7030; Q9967

== ENCOUNTER 2018-01-03 20:27 | Emergency (ER) | payer MEDICAID ==
[~2018-01-03] VITALS: Ht 157.5 cm; Wt 60.0 kg
[2018-01-03 20:38] VITALS: BP 134/80; TEMP 98.1
[2018-01-03 21:19] LABS: BASO % 0.3 % (0.0-2.0); EOS # 0.1 (0.0-0.7); EOS % 1.2 % (0-4.0); GRAN % 58.7 % (42.2-75.2); HEMATOCRIT 38.9 % (37.0-47.0); HEMOGLOBIN 12.7 g/dl (12.5-16.0); LYMPH # 2.3 (1.2-3.4); LYMPH % 32.8 % (20.0-51.0); MEAN CELL VOLUME 87 fl (80.0-100.0); MEAN CORPUSCULAR HEMOGLOBIN 28 pg (27.0-31.0); MEAN CORPUSCULAR HGB CONC 33 g/dl (33.0-37.0); MEAN PLATELET VOLUME 10.6 fl (7.4-10.4); MONO # 0.5 (0.1-0.6); MONO % 6.9 % (1.7-9.3); PLATELET COUNT 228 K/mm3 (130-400); RED BLOOD COUNT 4.48 M/mm3 (4.10-5.30); REDCELL DISTRIBUTION WIDTH-CV 12.6 % (11.5-14.5)
[2018-01-03 22:39] VITALS: PULSE 73
== END 2018-01-03 22:39 | disposition home or self-care (01) ==
LOC: COL.ER 20:27
PROVIDERS: Emergency Medicine
DX: G43.909 Migraine, unspecified, not intractable, without status migrainosus (principal)
CPT/HCPCS: J0780; J1200; J1885; J7030

== ENCOUNTER 2018-06-19 19:49 | Emergency (ER) | payer MEDICAID ==
[~2018-06-19] VITALS: Ht 157.5 cm; Wt 87.3 kg
[2018-06-19 20:15] VITALS: TEMP 96.9
[2018-06-19] MEDS ORDERED: ERGOCALCIFER50000 IU PO (22:10)
[2018-06-19] MEDS ORDERED: MAG-OX 400400 MG/TAB PO (22:10)
[2018-06-19] MEDS ORDERED: PHENERGAN 25 TA25 MG PO (22:53)
[2018-06-19 22:59] VITALS: BP 117/76; PULSE 95
== END 2018-06-19 22:59 | disposition home or self-care (01) ==
LOC: COL.ER 19:49
DX: G43.909 Migraine, unspecified, not intractable, without status migrainosus (principal)
CPT/HCPCS: J1200; J1885; J2550; J7030

== ENCOUNTER 2018-09-30 19:47 | Emergency (ER) | payer MEDICAID ==
[~2018-09-30] VITALS: Ht 157.5 cm; Wt 87.7 kg
[~2018-09-30 19:47] MED LIST changes: +ERGOCALCIFER50000 IU PO; +MAG-OX 400400 MG/TAB PO
[2018-09-30] MEDS ORDERED: DESYREL 100MG100 MG PO (22:29)
[2018-09-30] MEDS ORDERED: AIMOVIG AU70 MG/1 ML SQ (22:29)
[2018-10-01 00:50] VITALS: BP 94/61; PULSE 55; TEMP 97.9
== END 2018-10-01 01:00 | disposition home or self-care (01) ==
LOC: COL.ER 19:47
DX: G43.909 Migraine, unspecified, not intractable, without status migrainosus (principal)
CPT/HCPCS: J1200; J1885; J2270; J2550; J7030

== ENCOUNTER 2018-12-14 16:29 | Emergency (ER) | payer MEDICAID ==
[~2018-12-14] VITALS: Ht 157.5 cm; Wt 95.5 kg
[~2018-12-14 16:29] MED LIST changes: +AIMOVIG AU70 MG/1 ML SQ
[2018-12-14 19:59] VITALS: BP 138/82; PULSE 62; TEMP 98.2
== END 2018-12-14 20:00 | disposition home or self-care (01) ==
LOC: COL.ER 16:29
DX: G43.909 Migraine, unspecified, not intractable, without status migrainosus (principal); F32.9 Major depressive disorder, single episode, unspecified; F41.9 Anxiety disorder, unspecified; Z90.710 Acquired absence of both cervix and uterus; Z90.89 Acquired absence of other organs
CPT/HCPCS: J1200; J1885; J2550; J2765; J7030

== ENCOUNTER 2019-01-28 10:32 | Emergency (ER) | payer MEDICAID ==
[~2019-01-28] VITALS: Ht 157.5 cm; Wt 87.3 kg
[2019-01-28 10:49] VITALS: TEMP 98.2
[2019-01-28] MEDS ORDERED: NORCO 325 MG-51 TAB PO (12:14)
[2019-01-28 12:47] VITALS: BP 99/57; PULSE 75
== END 2019-01-28 12:47 | disposition home or self-care (01) ==
LOC: COL.ER 10:32
DX: S52.501A Unspecified fracture of the lower end of right radius, initial encounter for closed fracture (principal); F32.9 Major depressive disorder, single episode, unspecified; F41.9 Anxiety disorder, unspecified; G43.909 Migraine, unspecified, not intractable, without status migrainosus; W01.0XXA Fall on same level from slipping, tripping and stumbling without subsequent striking against object, initial encounter
CPT/HCPCS: J2405; J3010; Q4050

== ENCOUNTER → 2019-02-02 | Day surgery (SDC) | payer MEDICAID ==
[2019-02-02] VITALS (7 sets, daily range): BP systolic 90–105; BP diastolic 41–72; PULSE 57–78; TEMP 97.7–97.8
[~2019-02-02] VITALS: Ht 157.5 cm; Wt 102.0 kg
[~2019-02-02] MED LIST changes: +CAFERGOT 100 MG1 TAB PO; +FLONASEALLERGY NS; +SINGULAIR 110 MG/TAB PO; +ZYRTEC 10MG10 MG PO
--- NOTE | 2019-02-02 13:00 | NUR ---
Patient taken to the PACU per cart by Saeed SANDERSON to have block placed.
--- NOTE | 2019-02-02 16:13 | NUR ---
Pt returns from OR via cart. Report received from KOBE Eldridge, and KIN Tipton. Pt alert and responding appropriately to all questions. Monitors on and alarms set. Call light within reach. Right arm elevated on pillow. Sling in place. Dressing CDI. Fingers warm with capillary refill less than 3 seconds. Family brought to room. Pt requests water and muffin. Pt reports no pain or nausea.
--- NOTE | 2019-02-02 16:40 | NUR ---
Pt requesting crackers and applesauce. No other complaints voiced.
--- NOTE | 2019-02-02 17:15 | NUR ---
Pt remains without complication. Pt has interest in going home.
--- NOTE | 2019-02-02 17:20 | NUR ---
Discharge instructions given to patient and family. All questions answered to their satisfaction. Handed to them are discharge instructions, diagnosis information, a thank you card, a follow-up appt card, a prescription, and a discharge med sheet.
--- NOTE | 2019-02-02 17:45 | NUR ---
Pt dressed by family member then transferred out of hospital via wheelchair and this RN assist to private vehicle driven by family member.
== END ==
LOC: SDCO 11:45
DX: S52.501A Unspecified fracture of the lower end of right radius, initial encounter for closed fracture (principal); F32.9 Major depressive disorder, single episode, unspecified; M06.9 Rheumatoid arthritis, unspecified; K21.9 Gastro-esophageal reflux disease without esophagitis; G47.33 Obstructive sleep apnea (adult) (pediatric); Z90.49 Acquired absence of other specified parts of digestive tract; J45.909 Unspecified asthma, uncomplicated; Z83.3 Family history of diabetes mellitus; Z82.49 Family history of ischemic heart disease and other diseases of the circulatory system; Z82.61 Family history of arthritis; Z82.3 Family history of stroke; Z90.710 Acquired absence of both cervix and uterus; E66.9 Obesity, unspecified; G89.18 Other acute postprocedural pain
CPT/HCPCS: C1713; C1769; J0690; J1885; J2250; J2405; J2704; J2795; J3010; J7120

== ENCOUNTER 2019-04-14 08:31 | Emergency (ER) | payer SELFPAY ==
[~2019-04-14] VITALS: Ht 157.5 cm; Wt 97.7 kg
[2019-04-14 08:49] VITALS: BP 106/55; TEMP 97.5
[2019-04-14] MEDS ORDERED: CLEOCIN HCL300 MG PO ×2 (09:25)
[2019-04-14] MEDS ORDERED: BACTRIM DS 8001 TAB PO (09:27)
[2019-04-14] MEDS ORDERED: NORCO 325 MG-51 TAB PO (09:28)
[2019-04-14 10:05] VITALS: PULSE 62
== END 2019-04-14 10:05 | disposition home or self-care (01) ==
LOC: COL.ER 08:31
DX: N76.4 Abscess of vulva (principal); F41.9 Anxiety disorder, unspecified; G43.909 Migraine, unspecified, not intractable, without status migrainosus; Z79.51 Long term (current) use of inhaled steroids

== ENCOUNTER 2019-08-31 14:56 | Emergency (ER) | payer SELFPAY ==
[~2019-08-31] VITALS: Ht 157.5 cm; Wt 100.5 kg
[~2019-08-31 14:56] MED LIST changes: +CLEOCIN HCL300 MG PO
[2019-08-31 15:04] VITALS: TEMP 98.2
[2019-08-31] MEDS ORDERED: NORCO 325 MG-51 TAB PO (15:52)
[2019-08-31] MEDS ORDERED: CRUTCHES MC (15:53)
[2019-08-31 16:15] VITALS: BP 96/56; PULSE 66
== END 2019-08-31 16:15 | disposition home or self-care (01) ==
LOC: COL.ER 14:56
DX: S80.02XA Contusion of left knee, initial encounter (principal); F32.9 Major depressive disorder, single episode, unspecified; F41.9 Anxiety disorder, unspecified; Z79.51 Long term (current) use of inhaled steroids; W18.39XA Other fall on same level, initial encounter; Y92.009 Unspecified place in unspecified non-institutional (private) residence as the place of occurrence of the external cause

== ENCOUNTER 2020-05-21 14:30 | Emergency (ER) | payer MEDICAID ==
[~2020-05-21] VITALS: Ht 157.5 cm; Wt 111.8 kg
[~2020-05-21 14:30] MED LIST changes: +CRUTCHES MC; +DESYREL DIVIDO150 M1 PO
[2020-05-21 14:56] LABS: COLLECTION METHOD CLEAN CATCH
[2020-05-21 15:07] LABS: MUCOUS Present /lpf; PH 5 (5-8); URINE APPEARANCE Hazy; URINE BACTERIA Rare /hpf; URINE BILIRUBIN Negative (NEGATIVE); URINE BLOOD Negative (NEGATIVE); URINE COLOR Yellow; URINE GLUCOSE 3+ (NEGATIVE); URINE KETONE Negative (NEGATIVE); URINE LEUKOCYTE ESTERASE Negative (NEGATIVE); URINE NITRATE Negative (NEGATIVE); URINE PROTEIN(semi-quant) Negative (NEGATIVE); URINE RBC 0-2 /hpf; URINE UROBILINOGEN >=4.0 mg/dL (NEGATIVE)
[2020-05-21 15:20] LABS: BASO % 0.5 % (0.0-2.0); EOS # 0.1 (0.0-0.7); EOS % 1.5 % (0-4.0); GRAN # 4.1 (1.4-6.5); GRAN % 62.2 % (42.2-75.2); HEMOGLOBIN 11.3 g/dl (12.5-16.0); LYMPH # 1.9 (1.2-3.4); LYMPH % 28.7 % (20.0-51.0); MEAN CELL VOLUME 84 fl (80.0-100.0); MEAN CORPUSCULAR HEMOGLOBIN 27 pg (27.0-31.0); MEAN CORPUSCULAR HGB CONC 32 g/dl (33.0-37.0); MEAN PLATELET VOLUME 10.3 fl (7.4-10.4); MONO # 0.5 (0.1-0.6); MONO % 6.9 % (1.7-9.3); PLATELET COUNT 239 K/mm3 (130-400); RED BLOOD COUNT 4.24 M/mm3 (4.10-5.30); REDCELL DISTRIBUTION WIDTH-CV 13.5 % (11.5-14.5)
[2020-05-21 15:25] LABS: HEMATOCRIT 35.7 % (37.0-47.0)
[2020-05-21 15:27] LABS: C-REACTIVE PROTEIN 0.7 mg/dL (0.0-0.9)
[2020-05-21 16:01] LABS: ALBUMIN 3.9 gm/dL (3.5-5.0); BILIRUBIN,TOTAL 0.4 mg/dL (0.0-1.0); CALCIUM 8.5 mg/dL (8.4-10.2); CREATININE, serum 0.43 (0.52-1.25); POTASSIUM 4.5 mmol/L (3.4-5.0); TOTAL PROTEIN 7.1 gm/dL (6.4-8.2)
[2020-05-21] MEDS ORDERED: PRIL40 PO (16:06)
[2020-05-21] MEDS ORDERED: ZOFRAN ODT4 MG PO (16:06)
[2020-05-21 16:26] VITALS: BP 115/64; PULSE 88; TEMP 98.2
[2020-10-27] MEDS ORDERED: ONE-A-DAY ESSE1 EACH PO (16:10)
[2020-10-27] MEDS ORDERED: VITAMIN B11000 MCG/M IM (16:10)
== END 2020-05-21 16:28 | disposition home or self-care (01) ==
LOC: COL.ER 14:30
PROVIDERS: Nurse Practitioner Primary Care
DX: R10.10 Upper abdominal pain, unspecified (principal); Z87.442 Personal history of urinary calculi; Z90.49 Acquired absence of other specified parts of digestive tract; Z90.710 Acquired absence of both cervix and uterus
CPT/HCPCS: J1885; J2405; J7030

== ENCOUNTER → 2020-05-26 | Outpatient (CLI) | payer MEDICAID ==
[~2020-05-26] MED LIST changes: +MASON NATURAL2000 IU PO; +ONE-A-DAY ESSE1 EACH PO; +PRIL40 PO; +SALONPAS1 EACH TP; +VITAMIN B11000 MCG/M IM
== END ==
LOC: COL.RAD 13:32
DX: R10.11 Right upper quadrant pain (principal); Z90.710 Acquired absence of both cervix and uterus; Z98.890 Other specified postprocedural states
CPT/HCPCS: Q9967

== ENCOUNTER 2020-10-29 11:57 | Emergency (ER) | payer MEDICAID ==
[~2020-10-29] VITALS: Ht 157.5 cm; Wt 3.2 kg
[~2020-10-29 11:57] MED LIST changes: -MASON NATURAL2000 IU PO; -SALONPAS1 EACH TP
[2020-10-29 12:21] VITALS: TEMP 98.4
[2020-10-29 14:45] VITALS: BP 110/75; PULSE 68
== END 2020-10-29 14:45 | disposition home or self-care (01) ==
LOC: COL.ER 11:57
DX: G43.909 Migraine, unspecified, not intractable, without status migrainosus (principal); K21.9 Gastro-esophageal reflux disease without esophagitis; Z79.899 Other long term (current) drug therapy
CPT/HCPCS: J1200; J1885; J2765

== ENCOUNTER 2020-11-03 15:00 | Outpatient (RCR) | payer MEDICAID ==
[2020-10-22 15:29] VITALS: BP 103/61; PULSE 68; TEMP 99.1
[2020-10-24 14:30] VITALS: BP 112/60; PULSE 80; TEMP 98.7
[2020-10-27 16:04] VITALS: BP 121/82; PULSE 68; TEMP 98.4
--- NOTE | 2020-10-29 15:16 | NUR ---
Pt arrived for iron infusion.per pt report she was in ED for migraine.Pt requests to continue with iron infusion as scheduled.Azra Bello was unable to obtained IV access after 2 attempts.Per pt request iron infusion rescheduled until Tuesday.
[2020-10-31 14:34] VITALS: BP 98/65; PULSE 60; TEMP 98.6
[~2020-11-03] VITALS: Ht 157.5 cm; Wt 114.3 kg
[2020-11-03 15:21] VITALS: BP 107/60; PULSE 63; TEMP 98.7
== END 2020-11-03 16:42 | disposition still patient (30) ==
LOC: EUO 15:00
DX: Z79.899 Other long term (current) drug therapy (principal)
CPT/HCPCS: J1756

== ENCOUNTER 2020-12-02 08:17 | Emergency (ER) | payer MEDICAID ==
[~2020-12-02] VITALS: Ht 157.5 cm; Wt 96.4 kg
[2020-12-02 08:32] VITALS: TEMP 98
[2020-12-02 09:17] LABS: ALBUMIN 4.5 gm/dL (3.5-5.0); BILIRUBIN,TOTAL 0.9 mg/dL (0.0-1.0); C-REACTIVE PROTEIN 0.6 mg/dL (0.0-0.9); CALCIUM 9.3 mg/dL (8.4-10.2); CREATININE, serum 0.55 (0.52-1.25); POTASSIUM 4.9 mmol/L (3.4-5.0); TOTAL PROTEIN 7.7 gm/dL (6.4-8.2)
[2020-12-02 10:41] LABS: BASO % 0.3 % (0.0-2.0); EOS % 0.6 % (0-4.0); GRAN # 5.7 (1.4-6.5); HEMATOCRIT 38.1 % (37.0-47.0); LYMPH # 0.5 (1.2-3.4); LYMPH % 7.9 % (20.0-51.0); MEAN CELL VOLUME 83 fl (80.0-100.0); MEAN CORPUSCULAR HEMOGLOBIN 26 pg (27.0-31.0); MEAN CORPUSCULAR HGB CONC 32 g/dl (33.0-37.0); MEAN PLATELET VOLUME 9.7 fl (7.4-10.4); MONO # 0.3 (0.1-0.6); MONO % 4.9 % (1.7-9.3); PLATELET COUNT 202 K/mm3 (130-400); RED BLOOD COUNT 4.59 M/mm3 (4.10-5.30); REDCELL DISTRIBUTION WIDTH-CV 17.6 % (11.5-14.5)
[2020-12-02] MEDS ORDERED: ZOFRAN ODT4 MG PO (10:48)
[2020-12-02] MEDS ORDERED: NORCO 325 MG-51 TAB PO (10:48)
[2020-12-02] MEDS ORDERED: DESYREL 50MG50 MG PO (11:03)
[2020-12-02] MEDS ORDERED: HAIRSKINNAILS PO (11:04)
[2020-12-02] MEDS ORDERED: ULTRAM 50MG TAB50 MG PO (11:04)
[2020-12-02] MEDS ORDERED: SALONPAS1 EACH TP (11:04)
[2020-12-02] MEDS ORDERED: MASON NATURAL2000 IU PO (11:05)
[2020-12-02 11:30] VITALS: BP 116/65; PULSE 67
== END 2020-12-02 11:46 | disposition home or self-care (01) ==
LOC: COL.ER 08:17
PROVIDERS: Emergency Medicine
DX: K52.9 Noninfective gastroenteritis and colitis, unspecified (principal)
CPT/HCPCS: J1170; J2270; J2405; J7030; Q9967

== ENCOUNTER 2021-03-05 12:52 | Emergency (ER) | payer MEDICAID ==
[~2021-03-05] VITALS: Ht 157.5 cm; Wt 95.5 kg
[~2021-03-05 12:52] MED LIST changes: +MASON NATURAL2000 IU PO; +SALONPAS1 EACH TP
[2021-03-05 13:09] VITALS: BP 111/76; TEMP 98.1
[2021-03-05] MEDS ORDERED: PREDNISONE20 MG PO (13:26)
[2021-03-05 13:45] VITALS: PULSE 80
== END 2021-03-05 13:45 | disposition home or self-care (01) ==
LOC: COL.ER 12:52
DX: L50.9 Urticaria, unspecified (principal)
CPT/HCPCS: J7512

== ENCOUNTER 2021-11-10 15:00 | Outpatient (RCR) | payer MEDICAID | END 2021-11-11 | disposition home or self-care (01) | LOC: MKS.ESL.PT | DX: M54.50 Low back pain, unspecified (principal) ==

== ENCOUNTER 2021-11-24 14:56 | Emergency (ER) | payer SELFPAY ==
[~2021-11-24] VITALS: Ht 157.5 cm; Wt 89.5 kg
[2021-11-24 15:05] VITALS: TEMP 98.7
[2021-11-24] MEDS ORDERED: FLEXERIL 1010 MG/TAB PO (16:28)
[2021-11-24] MEDS ORDERED: NORCO 325 MG-51 TAB PO (16:28)
[2021-11-24 17:02] VITALS: BP 128/79; PULSE 61
== END 2021-11-24 17:10 | disposition home or self-care (01) ==
LOC: COL.ER 14:56
DX: M54.50 Low back pain, unspecified (principal); M54.6 Pain in thoracic spine; W10.8XXA Fall (on) (from) other stairs and steps, initial encounter; Y92.59 Other trade areas as the place of occurrence of the external cause; Y99.0 Civilian activity done for income or pay

== ENCOUNTER 2021-11-30 14:29 | Emergency (ER) | payer OTHER ==
[~2021-11-30] VITALS: Ht 157.5 cm; Wt 108.2 kg
[2021-11-30] MEDS ORDERED: ASPERCREME1 EACH TP (17:42)
[2021-11-30 17:53] VITALS: BP 103/66; PULSE 77; TEMP 98.3
== END 2021-11-30 17:59 | disposition home or self-care (01) ==
LOC: COL.ER 14:29
DX: S29.9XXA Unspecified injury of thorax, initial encounter (principal); W18.30XA Fall on same level, unspecified, initial encounter

== ENCOUNTER 2021-12-18 11:00 | Outpatient (RCR) | payer OTHER ==
[~2021-12-18 11:00] MED LIST changes: +ASPERCREME1 EACH TP
== END 2022-01-11 | disposition home or self-care (01) ==
LOC: PT.GENESIS
DX: S29.012D Strain of muscle and tendon of back wall of thorax, subsequent encounter (principal); S39.012D Strain of muscle, fascia and tendon of lower back, subsequent encounter; S30.0XXD Contusion of lower back and pelvis, subsequent encounter; X58.XXXD Exposure to other specified factors, subsequent encounter; W19.XXXD Unspecified fall, subsequent encounter

== ENCOUNTER 2022-05-04 11:56 | Observation (INO) | payer MEDICAID ==
[~2022-05-04] VITALS: Ht 157.5 cm; Wt 110.0 kg
[2022-05-04 12:41] LABS: COLLECTION METHOD CLEAN CATCH
[2022-05-04 12:48] LABS: BASO % 0.8 % (0.0-2.0); GRAN # 2.3 K/mm3 (1.4-6.5); HEMATOCRIT 40.7 % (37.0-47.0); HEMOGLOBIN 12.8 g/dl (12.5-16.0); LYMPH # 1.2 K/mm3 (1.2-3.4); LYMPH % 30.6 % (20.0-51.0); MEAN CELL VOLUME 82 fl (80.0-100.0); MEAN CORPUSCULAR HEMOGLOBIN 26 pg (27-31); MEAN CORPUSCULAR HGB CONC 31 g/dl (33.0-37.0); MEAN PLATELET VOLUME 10.2 fl (7.4-10.4); MONO # 0.3 K/mm3 (0.1-0.6); MONO % 7.3 % (1.7-9.3); PLATELET COUNT 262 K/mm3 (130-400); RED BLOOD COUNT 4.96 M/mm3 (4.10-5.30); REDCELL DISTRIBUTION WIDTH-CV 14.2 % (11.5-14.5)
[2022-05-04 12:54] LABS: URINE APPEARANCE Clear (CLEAR/HAZY); URINE BLOOD Negative (NEGATIVE); URINE COLOR Yellow (YELLOW); URINE GLUCOSE Negative (NEGATIVE); URINE KETONE Negative (NEGATIVE); URINE NITRATE Negative (NEGATIVE); URINE PROTEIN(semi-quant) Negative (NEGATIVE)
[2022-05-04 12:56] LABS: URINE BACTERIA None Seen /hpf (NONE SEEN); URINE RBC None Seen /hpf (0-2)
[2022-05-04 13:06] LABS: ALBUMIN 3.9 gm/dL (3.5-5.0); BILIRUBIN,TOTAL 0.7 mg/dL (0.2-1.2); C-REACTIVE PROTEIN 0.22 mg/dL (0.00-0.50); CALCIUM 9.4 mg/dL (8.4-10.2); CREATININE, serum 0.7 mg/dL (0.57-1.11); POTASSIUM 4.3 mmol/L (3.5-4.5); TOTAL PROTEIN 7.5 gm/dL (6.2-8.1)
[2022-05-04] MEDS ORDERED: LYRICA 150MG C150 MG PO (14:55)
[2022-05-04] MEDS ORDERED: CYMBALTA 30MG30 MG PO (14:56)
[2022-05-04] MEDS ORDERED: LYRICA 75MG CAP75 MG PO (14:56)
[2022-05-04 16:42] VITALS: BP 109/59; PULSE 67; TEMP 97.6
--- NOTE | 2022-05-04 17:30 | NUR ---
Pt arrived to the floor from ED. She is alert and oriented, mild pain complaints at this time. Educated pt on clear liquid diet and if she feels ok with no N/V, she can have heart healthy diet. Educated her on how to order meals. IV fluids to right AC. Pt has tolerated broth and jello with no complaints.
--- NOTE | 2022-05-04 19:57 | NUR ---
pt resting in bed watching tv. assessment complete. pt rates pain an 8/10, morphine given per emar. vss and tele in place. tolerated dinner well w no complaints of nausea. NS infusing in rt ac at 100ml/hr. no needs at this time. call light within reach.
[2022-05-04 20:08] VITALS: BP 105/42; PULSE 76; TEMP 98.2
[2022-05-05] VITALS (7 sets, daily range): BP systolic 100–114; BP diastolic 45–59; PULSE 52–73; TEMP 97.4–98.3
[2022-05-05 07:04] LABS: BASO % 0.3 % (0.0-2.0); EOS # 0.1 K/mm3 (0.0-0.7); EOS % 2.7 % (0.0-4.0); GRAN # 1.8 K/mm3 (1.4-6.5); GRAN % 54.5 % (42.2-75.2); HEMOGLOBIN 11.4 g/dl (12.5-16.0); LYMPH # 1.2 K/mm3 (1.2-3.4); LYMPH % 36.2 % (20.0-51.0); MEAN CELL VOLUME 83 fl (80.0-100.0); MEAN CORPUSCULAR HEMOGLOBIN 26 pg (27-31); MEAN CORPUSCULAR HGB CONC 32 g/dl (33.0-37.0); MEAN PLATELET VOLUME 10.3 fl (7.4-10.4); MONO # 0.2 K/mm3 (0.1-0.6); MONO % 5.7 % (1.7-9.3); PLATELET COUNT 218 K/mm3 (130-400); RED BLOOD COUNT 4.36 M/mm3 (4.10-5.30); REDCELL DISTRIBUTION WIDTH-CV 14.1 % (11.5-14.5)
--- NOTE | 2022-05-05 07:30 | NUR ---
Pt. laying in bed. Pt. is A&OX3, assessment complete. IV to rt. ac patent, IV fluids infusing per orders. Pt. reports pain at a 9 on pain scale, giving pain meds per orders. Pt. is NPO for MRCP. Pt. denies further needs.
[2022-05-05 07:31] LABS: ALBUMIN 3.1 gm/dL (3.5-5.0); CALCIUM 8.4 mg/dL (8.4-10.2); CREATININE, serum 0.62 mg/dL (0.57-1.11); MAGNESIUM 1.9 mg/dL (1.6-2.6)
[2022-05-05 07:32] LABS: BILIRUBIN,DIRECT 0.2 mg/dL (0.0-0.5); BILIRUBIN,TOTAL 0.6 mg/dL (0.2-1.2)
--- NOTE | 2022-05-05 13:59 | NUR ---
bingo worker met with Patient, her daughter, Kandi P: [phone], and her , Jaspal P: [phone] at bedside to conduct Care Managment intake and discuss discharge planning. Patient presented with closed eyes but was able to answer intake information. Patient reports that she lives in [place], [place] and that her PCP is Ronit Cardoza. Her Primary insurance is [employer] and lives with her , Alvino who does not speak frisian and Two other daughters. Patient reports no AD at this time and requested AD paperwork to be left with her family to review during inpatient stay. Patient denies use of O2 and DME. Patient reports to be independent with ADLs/IADLs. Patient reports to have transportation home if discharged direct to home.
--- NOTE | 2022-05-05 15:41 | NUR ---
Initial visit; Patient thanked General Counsel for looking in on her and offering "Imposition of Ashes" and God's blessings. She stated that her daughter wanted "Ashes" as well and General Counsel told her she would be here a little while yet.
--- NOTE | 2022-05-05 16:04 | NUR ---
Follow-up visit; Patient requested that Electric Tripper Machine Operator give "Imposition of Ashes" to her daughter Kandi. Electric Tripper Machine Operator did so and offered Kandi God's Blessings.
[2022-05-06] VITALS (11 sets, daily range): BP systolic 100–115; BP diastolic 41–70; PULSE 55–91; TEMP 97.4–98.1
--- NOTE | 2022-05-06 02:08 | NUR ---
SHIFT REPORT FROM IMMANUEL BULLOCK. PATIENT IN BED ON ROOM ENTRY. ALERT AND ORIENTED. DENIES PAIN CONTROL NEEDS. HS MEDS PER EMAR. TOLERATING CLEARS, NPO AT MIDNIGHT. DENIES ADDITIONAL NEEDS. CALL LIGHT IN REACH.
[2022-05-06 04:34] LABS: CERULOPLASMIN 23 mg/dL (20-60)
[2022-05-06 07:37] LABS: BASO % 0.6 % (0.0-2.0); EOS # 0.1 K/mm3 (0.0-0.7); EOS % 2.3 % (0.0-4.0); GRAN # 1.9 K/mm3 (1.4-6.5); GRAN % 54.4 % (42.2-75.2); HEMOGLOBIN 11.2 g/dl (12.5-16.0); LYMPH # 1.3 K/mm3 (1.2-3.4); LYMPH % 35.6 % (20.0-51.0); MEAN CELL VOLUME 83 fl (80.0-100.0); MEAN CORPUSCULAR HEMOGLOBIN 26 pg (27-31); MEAN CORPUSCULAR HGB CONC 31 g/dl (33.0-37.0); MONO # 0.2 K/mm3 (0.1-0.6); MONO % 6.8 % (1.7-9.3); PLATELET COUNT 212 K/mm3 (130-400); RED BLOOD COUNT 4.34 M/mm3 (4.10-5.30)
[2022-05-06 07:39] LABS: HEMATOCRIT 36.1 % (37.0-47.0)
[2022-05-06 07:56] LABS: ALBUMIN 3.2 gm/dL (3.5-5.0); BILIRUBIN,TOTAL 0.5 mg/dL (0.2-1.2); CALCIUM 8.7 mg/dL (8.4-10.2); CREATININE, serum 0.66 mg/dL (0.57-1.11); POTASSIUM 3.9 mmol/L (3.5-4.5); TOTAL PROTEIN 6.2 gm/dL (6.2-8.1)
--- NOTE | 2022-05-06 08:00 | NUR ---
Pt. sitting up in bed. Pt. is A&OX3, assessment complete. INT to rt. ac patent. Pt. reports pain at a 5 on pain scale, giving pain meds per orders. Pt. denies further needs, call light within reach.
[2022-05-06 12:14] LABS: ANA SCREEN with REFLEX Positive (Negative)
[2022-05-06] MEDS ORDERED: PROTONIX 40MG T40 MG PO (13:11)
--- NOTE | 2022-05-06 14:30 | NUR ---
Pt. to EGD at this time
--- NOTE | 2022-05-06 19:48 | NUR ---
SHIFT REPORT FROM IMMANUEL BULLOCK. PATIENT IN BED ON ROOM ENTRY. ALERT AND ORIENTED. FAMILY AT BEDSIDE. HS MEDS PER EMAR. PATIENT HAD REQUESTED PAIN MEDS AT SHIFT CHANGE AND ULTRAM WAS ORDERED, WHEN OFFERED PATIENT STATED THIS MED CAUSES HEADACHES AND REQUESTED NORCO. NOTIFIED DEBORA CROCKER AND NORCO ORDERED. DENIES ADDITIONAL NEEDS. CALL LIGHT IN REACH.
[2022-05-07 03:43] VITALS: BP 99/48; PULSE 53; TEMP 97.9
--- NOTE | 2022-05-07 08:00 | NUR ---
Patient sitting up in bed, eating. Reports its the best pancake she has had. mminimal complaints this am, anticipating dischage home today. Will monitor.
[2022-05-07 08:13] VITALS: BP 100/46; PULSE 78; TEMP 98
[2022-05-07 08:40] LABS: BASO % 0.3 % (0.0-2.0); EOS # 0.1 K/mm3 (0.0-0.7); EOS % 2.8 % (0.0-4.0); GRAN # 2.3 K/mm3 (1.4-6.5); GRAN % 58.5 % (42.2-75.2); HEMATOCRIT 38.2 % (37.0-47.0); HEMOGLOBIN 11.9 g/dl (12.5-16.0); LYMPH # 1.3 K/mm3 (1.2-3.4); LYMPH % 32.8 % (20.0-51.0); MEAN CELL VOLUME 83 fl (80.0-100.0); MEAN CORPUSCULAR HEMOGLOBIN 26 pg (27-31); MEAN CORPUSCULAR HGB CONC 31 g/dl (33.0-37.0); MEAN PLATELET VOLUME 10.6 fl (7.4-10.4); MONO # 0.2 K/mm3 (0.1-0.6); MONO % 5.6 % (1.7-9.3); PLATELET COUNT 222 K/mm3 (130-400); RED BLOOD COUNT 4.61 M/mm3 (4.10-5.30)
--- NOTE | 2022-05-07 10:49 | NUR ---
Patient ready for discharge home. Her daughter taking her home. Patient request pain medication prior to leaving. We reviewed all education. She denies questions or concerns. Wheeled out with all beloingings.
[2022-05-07 12:42] LABS: ANTISMOOTH MUSCLE ANTIBODY Negative (Negative)
== END 2022-05-07 10:52 | disposition home or self-care (01) ==
LOC: COL.ER 11:56 → SURG 15:26
PROVIDERS: Internal Medicine Gastroenterology; Nurse Practitioner; ADMIT Internal Medicine
DX: R10.11 Right upper quadrant pain (principal); R11.2 Nausea with vomiting, unspecified; R19.7 Diarrhea, unspecified; K83.8 Other specified diseases of biliary tract; R74.01 Elevation of levels of liver transaminase levels; M79.89 Other specified soft tissue disorders; M79.7 Fibromyalgia; G47.00 Insomnia, unspecified; Z98.84 Bariatric surgery status
CPT/HCPCS: C9113; G0378; J1885; J2270; J2405; J2704; J7030; Q9967

== ENCOUNTER 2023-09-24 21:42 | Emergency (ER) | payer MEDICAID ==
[~2023-09-24] VITALS: Ht 157.5 cm; Wt 109.1 kg
[~2023-09-24 21:42] MED LIST changes: +ADALAT CC30 MG PO; +ASPIRIN 81M81 MG/TA2 PO; +LYRICA 150MG C150 MG PO; +LYRICA 75MG CAP75 MG PO; +MOBIC15 MG PO; +PROTONIX 40MG T40 MG PO
[2023-09-24 21:44] VITALS: TEMP 97.9
[2023-09-24 21:50] VITALS: O2SAT 100
[2023-09-24 22:11] LABS: BASO % 0.6 % (0.0-2.0); EOS # 0.4 K/mm3 (0.0-0.7); EOS % 5.9 % (0.0-4.0); GRAN # 3.8 K/mm3 (1.4-6.5); GRAN % 52.2 % (42.2-75.2); HEMATOCRIT 43.6 % (37.0-47.0); HEMOGLOBIN 14.4 g/dl (12.5-16.0); LYMPH # 2.6 K/mm3 (1.2-3.4); LYMPH % 35.8 % (20.0-51.0); MEAN CELL VOLUME 83 fl (80.0-100.0); MEAN CORPUSCULAR HEMOGLOBIN 27 pg (27-31); MEAN CORPUSCULAR HGB CONC 33 g/dl (33.0-37.0); MEAN PLATELET VOLUME 10.2 fl (7.4-10.4); MONO # 0.4 K/mm3 (0.1-0.6); MONO % 5.4 % (1.7-9.3); PLATELET COUNT 249 K/mm3 (130-400); RED BLOOD COUNT 5.25 M/mm3 (4.10-5.30); REDCELL DISTRIBUTION WIDTH-CV 14.6 % (11.5-14.5)
[2023-09-24] MEDS ORDERED: diphenhydrAMINE 50 MG/ML 1 ML VIAL IV ONE (22:15)
[2023-09-24] MEDS ORDERED: NS 1,000 ML IV ONE (22:15)
[2023-09-24 22:20] LABS: INR 0.9 (0.8-3.0); PROTHROMBIN TIME 10.1 SECONDS (9.7-12.8)
[2023-09-24 22:22] LABS: PARTIAL THROMBOPLASTIN TIME 30.3 SECONDS (26.0-37.0)
[2023-09-24 22:26] LABS: ALANINE AMINOTRANSFERASE 83 U/L (0-55); ALBUMIN 3.8 g/dL (3.5-5.0); ALKALINE PHOSPHATASE 117 U/L (40-150); ANION GAP 12 mmol/L (7-16); AST,SGOT 27 U/L (5-34); BILIRUBIN,TOTAL 0.5 mg/dL (0.2-1.2); BLOOD UREA NITROGEN 8 mg/dL (7-19); CALCIUM 9.8 mg/dL (8.4-10.2); CHLORIDE 106 mEq/L (98-107); CREATININE, serum 0.69 mg/dL (0.57-1.11); GLUCOSE 104 mg/dL (70-99); POTASSIUM 3.7 mEq/L (3.5-4.5); SODIUM 138 mEq/L (136-145); TOTAL PROTEIN 7.2 g/dl (6.2-8.1)
[2023-09-24 22:36] LABS: TROPONIN-I < 0.010 ng/mL (0.00-0.033)
[2023-09-24 23:03] LABS: COLLECTION METHOD CLEAN CATCH
[2023-09-24 23:07] LABS: URINE APPEARANCE CLEAR (CLEAR/HAZY); URINE BLOOD NEGATIVE (NEGATIVE); URINE COLOR YELLOW (YELLOW); URINE GLUCOSE NEGATIVE (NEGATIVE); URINE KETONE NEGATIVE (NEGATIVE); URINE NITRATE NEGATIVE (NEGATIVE); URINE PROTEIN(semi-quant) NEGATIVE (NEGATIVE)
[2023-09-24 23:50] VITALS: BP 112/59; PULSE 60
[2023-09-29] MEDS ORDERED: PERCOCET 325 MG1 TA2 PO (11:46)
[2023-09-29] MEDS ORDERED: PLAQUENIL 200M200 MG PO (11:47)
[2023-09-29] MEDS ORDERED: ZOFRAN 4MG T4 MG/TAB PO (11:47)
== END 2023-09-24 23:50 | disposition home or self-care (01) ==
LOC: COL.ER 21:42
PROVIDERS: Emergency Medicine
DX: R07.2 Precordial pain (principal); R51.9 Headache, unspecified; Z86.69 Personal history of other diseases of the nervous system and sense organs
CPT/HCPCS: J1200; J2765; J7030

== ENCOUNTER 2023-12-07 14:19 | Emergency (ER) | payer MEDICAID ==
[~2023-12-07] VITALS: Ht 157.5 cm; Wt 104.5 kg
[~2023-12-07 14:19] MED LIST changes: +PLAQUENIL 200M200 MG PO
[2023-12-07 14:36] VITALS: TEMP 98.1
[2023-12-07] MEDS ORDERED: traMADol 50 MG TAB PO ONE (17:45)
[2023-12-07] MEDS ORDERED: Ketorolac 30 MG/ML VIAL IM ONE (17:45)
[2023-12-07 19:05] VITALS: BP 118/85; PULSE 49
== END 2023-12-07 19:05 | disposition home or self-care (01) ==
LOC: COL.ER 14:19
DX: S23.41XA Sprain of ribs, initial encounter (principal); M54.6 Pain in thoracic spine; X58.XXXA Exposure to other specified factors, initial encounter
CPT/HCPCS: J1885